=== PATIENT | male | born 1960 | race Caucasian/White ===

== ENCOUNTER 2020-02-17 20:32 | Emergency (ER) | payer OTHER ==
[~2020-02-17] VITALS: Ht 172.7 cm; Wt 86.2 kg
[2020-02-17] MEDS ORDERED: NEURONTIN600 M1 PO (20:49)
[2020-02-17] MEDS ORDERED: SIMVASTATIN20 MG PO (20:50)
[2020-02-17] MEDS ORDERED: XANAX1 MG PO (20:51)
[2020-02-17] MEDS ORDERED: DULOXETINE HCL40 MG PO (20:51)
[2020-02-17] MEDS ORDERED: FINASTERIDE1 MG PO (20:51)
[2020-02-17] MEDS ORDERED: VITAMIN C500 M6 PO (20:52)
[2020-02-17] MEDS ORDERED: INTRINSI B12-F1 EACH PO (20:52)
[2020-02-17] MEDS ORDERED: DERMACINRX5000 UNIT PO (20:53)
== END 2020-02-18 00:09 | disposition home or self-care (01) ==
LOC: ER 20:32
DX: B34.9 Viral infection, unspecified (principal); R81 Glycosuria; Z20.818 Contact with and (suspected) exposure to other bacterial communicable diseases; R07.89 Other chest pain

== ENCOUNTER 2022-04-13 10:23 | Emergency (ER) | payer OTHER ==
[~2022-04-13] VITALS: Ht 172.7 cm; Wt 86.2 kg
[~2022-04-13 10:23] MED LIST: DERMACINRX5000 UNIT PO; DULOXETINE HCL40 MG PO; FINASTERIDE1 MG PO; INTRINSI B12-F1 EACH PO; NEURONTIN600 M1 PO; SIMVASTATIN20 MG PO; VITAMIN C500 M6 PO; XANAX1 MG PO
== END 2022-04-13 16:07 | disposition home or self-care (01) ==
LOC: ER 10:23
DX: R05.9 Cough, unspecified (principal); Z20.822 Contact with and (suspected) exposure to COVID-19

== ENCOUNTER 2022-08-03 09:00 | Outpatient (CLI) | payer OTHER | END 2022-08-03 09:25 | disposition home or self-care (01) | LOC: SONOGRAMA 09:00 | PROVIDERS: ATTEND Internal Medicine | DX: R10.11 Right upper quadrant pain (principal); R10.9 Unspecified abdominal pain ==

== ENCOUNTER 2023-05-10 08:13 | Outpatient (CLI) | payer OTHER | END 2023-05-10 08:18 | disposition home or self-care (01) | LOC: NUCLEAR 08:13 | PROVIDERS: ATTEND Internal Medicine | DX: I87.2 Venous insufficiency (chronic) (peripheral) (principal) ==